=== PATIENT | female | born 1975 | race Caucasian/White ===

== ENCOUNTER 2022-10-04 12:55 | Outpatient (REF) | payer OTHER, SELFPAY ==
[2022-10-04 13:55] LABS: Appearance Urine Cloudy; Color Urine Yellow; Glucose Urine UA Negative (Negative); Leukocyte Esterase Urine Negative (Negative); Nitrite Urine Negative (Negative); PH 7.5 (5.0-9.0); Specific Gravity - Urine 1.015 (1.005-1.025); Urine Blood Negative (Negative); Urine Ketones Negative (Negative); Urine Protein Negative (Neg-Trace)
== END 2022-10-04 12:56 | disposition home or self-care (01) ==
LOC: HO.LAB 12:55
PROVIDERS: Visit Provider Nurse Practitioner Family
DX: N39.0 Urinary tract infection, site not specified (principal)
CPT/HCPCS: 81003

== ENCOUNTER 2023-12-03 08:30 | Outpatient (AMB) | payer OTHER, SELFPAY ==
--- NOTE | 2023-12-03 08:31 | AM.OFFWIN_ITS ---
Intake Vital Signs 3 12/03/23 08:32 Height 5 ft 5 in Weight 260 lb BMI 43.3 BP 128/84 Blood Pressure Location Rt brachial Position Sitting Pulse 83 Pulse Source Pulse Oximeter Temp 98.2 F Temp Source Oral Pulse Oximetry (%) 97 Oxygen Delivery Method Room Air Intake Visit Reasons: EP LT leg, diff walking Intake Note: pt c/o LT leg pain, lump on back of knee. Started Thursday. Patient Tobacco Use Status: Never used Tobacco Allergies No Known Allergies Allergy (Verified 12/03/23 08:31) Do you need a note to return to daycare/school/sports/work: No HPI HPI Comments 2 History of Present Illness0 Details 48 y/o female patient who presents to [facility] walk in clinic with c/o left knee pain since yesterday. Pt reports pain with walking, bending knee and putting weight on left Knee. Denies injury or trauma. Pt is morbidly obese. PFSH Social History Patient Tobacco Use Status: Never used Tobacco Review of Systems Const All systems reviewed & are unremarkable except as noted in HPI and below Physical Exam Vital Signs: Last Vital Signs Temp 98.2 F 12/03/23 08:32 Pulse 83 12/03/23 08:32 BP 128/84 12/03/23 08:32 Pulse Ox 97 12/03/23 08:32 Oxygen Delivery Method Room Air 12/03/23 08:32 BMI result Body Mass Index 43.3 Const General: comfortable and no acute distress Nutritional Appearance: obese morbidly obese Orientation/consciousness: patient oriented x3 Skin General skin exam: no rashes or lesions noted Neuro General: patient oriented x3, gait normal (Walk with a slight lump due to pain) and moves all extremities Extrem Right lower extremity: normal to inspection and full ROM Left lower extremity: knee (Pain with flexion of knee) Details: tenderness (palpable small lump popliteal aspect left knee) and normal ROM; no swelling Knee images: 2 1. palpable small lump popliteal aspect left knee ~ 1.5 cm Tender to touch, soft and mobile. Psych Speech and movement: Normal speech and movement present Assessment & Plan Assessment & Plan (1) Left knee pain: Code(s): M25.562 - Pain in left knee Qualifiers: Chronicity: acute Qualified Code(s): M25.562 - Pain in left knee Plan: DDx's: DVT, Athritis, Cyst or Lipoma. DVT: less possible, no severe pain, no Skin color change, and Claudia's sign negative. Ordered Xray of the knee. NSAIDs for pain relief Prednisone for 10 days, low dose. Medications: New 2 prednisone 20 mg PO DAILY 10 tabs 0RF M25.562 - Pain in left knee meloxicam 7.5 mg PO DAILY 30 tabs 0RF M25.562 - Pain in left knee Coding Level of Care Code New Pt Level 3 (61976) Diagnoses Acute pain of left knee M25.562 Chronicity: acute Time Spent (min) 20 Comment Spent on Exam and reviewing of Xray imaging.
[2023-12-03 08:32] VITALS: BP 128/84; PULSE 83; TEMP 36.8; O2SAT 97; BMI 43.3
== END 2023-12-03 09:10 | disposition home or self-care (01) ==
PROVIDERS: PCP Pediatrics; Visit Provider Nurse Practitioner Family
DX: M25.562 Pain in left knee (principal)
CPT/HCPCS: 99203

== ENCOUNTER 2023-12-03 08:55 | Outpatient (REF) | payer OTHER, SELFPAY ==
--- NOTE | ~2023-12-03 | XR_ITS ---
EXAMINATION: XR KNEE, LEFT CLINICAL INFORMATION: Left knee pain. No trauma. COMPARISON: None available. TECHNIQUE: Four views of the left knee. FINDINGS: Alignment is anatomic. Mild medial tibiofemoral patellofemoral cartilage space loss with marginal osteophytes. Trace suprapatellar joint effusion. Focal soft tissue prominence within the posterior aspect of the knee measuring approximately 4 cm. XR/XR knee LT 4V IMPRESSION: Mild osteoarthritis of the left knee. Focal 4 cm soft tissue prominence posterior aspect of the knee. Consider targeted sonographic evaluation.
== END 2023-12-03 08:56 | disposition home or self-care (01) ==
LOC: HO.HMGCX 08:55
PROVIDERS: PCP Pediatrics; Visit Provider Nurse Practitioner Family
DX: M25.562 Pain in left knee (principal)
CPT/HCPCS: 73564

== ENCOUNTER 2024-01-25 10:54 | Outpatient (AMB) | payer OTHER, SELFPAY ==
[2024-01-25 11:14] VITALS: BP 114/76; PULSE 72; TEMP 36.8; O2SAT 97; BMI 43.4
--- NOTE | 2024-01-25 11:14 | MHC.OFFWIV ---
Intake Vital Signs 01/25/24 11:14 Height 5 ft 5 in Weight 261 lb BMI 43.4 BP 114/76 Blood Pressure Location Lt brachial Position Sitting Pulse 72 Pulse Source Pulse Oximeter Temp 98.3 F Temp Source Oral Pulse Oximetry (%) 97 Oxygen Delivery Method Room Air Intake Visit Reasons: EP-rt eye swollen Intake Note: pt c/o RT eye and cheek swelling.Warm and painful to touch Started last night. Took Benadryl, no relief Patient Tobacco Use Status: Never used Tobacco Allergies No Known Allergies Allergy (Verified 01/25/24 11:25) Do you need a note to return to daycare/school/sports/work: No HPI EP-rt eye swollen HPI Details This note is constructed using voice recognition software. While every effort has been made to ensure accuracy, dietary supervisor errors may have been included. The patient is a 48 year old female who presents to the clinic today with right-sided facial swelling since yesterday. At 1st she thought it was an allergic reaction but she did not have any new soaps, lotions, detergents, or any other exposures. She notes that she has never had anything like this before. She has some warm sensation to the cheek and some mild swelling. She tried ice without any improvement. She denies fever, chills, cough, shortness of breath, or any other URI symptoms. [facility] Social History Patient Tobacco Use Status: Never used Tobacco Review of Systems Const All systems reviewed & are unremarkable except as noted in HPI and below Physical Exam Vital Signs: Last Vital Signs Temp 98.3 F 01/25/24 11:14 Pulse 72 01/25/24 11:14 BP 114/76 01/25/24 11:14 Pulse Ox 97 01/25/24 11:14 Oxygen Delivery Method Room Air 01/25/24 11:14 BMI result Body Mass Index 43.4 Const General: cooperative, healthy appearing, comfortable, no acute distress and alert Orientation/consciousness: patient oriented x3 Limitations: no limitations HEENT Other: Erythema, warmth, and inflammation to right side of face over cheek bone covering approximately 4 x 3 cm in area. Eyes General: appearance normal, both eyes and all related structures Neck Neck: Yes normal visual inspection, Yes full ROM and Yes no lymphadenopathy Resp Effort & Inspection: normal respiratory effort and able to speak in complete sentences Auscultation: clear to auscultation bilaterally Cardio Jugular venous distension: no JVD Palpation: normal PMI Rate: regular rate Heart sounds: S1 normal heart sound present, S2 normal heart sound present, no click, no gallops, no murmurs and no rubs Skin General skin exam: elasticity normal and turgor normal Neuro General: patient oriented x3 Psych Appearance: grossly normal Mental Status: mental status grossly normal Speech and movement: Normal speech and movement present Affect: normal affect Assessment & Plan Assessment & Plan (1) Cellulitis: Code(s): L03.90 - Cellulitis, unspecified Qualifiers: Site of cellulitis: face Qualified Code(s): L03.211 - Cellulitis of face Plan: Antibiotics sent to requested pharmacy. Advised patient to follow up for any worsening or failure to resolve after initiation of antibiotics, as she may require IV antibiotics with worsening. Plan See above for full details and plan. Medications: New cephalexin 500 mg PO BID 7 days 14 caps 0RF Coding Level of Care Code Est Pt Level 3 (35289) Diagnoses Cellulitis of face L03.211 Site of cellulitis: face
== END 2024-01-25 11:45 | disposition home or self-care (01) ==
PROVIDERS: PCP Pediatrics; Visit Provider Registered Nurse
DX: L03.211 Cellulitis of face (principal)

== ENCOUNTER → 2024-01-25 10:54 | Outpatient (BNVA) | payer OTHER, SELFPAY | PROVIDERS: PCP Pediatrics | DX: L03.211 Cellulitis of face (principal) ==